=== PATIENT | female | born 1935 | race African-American/Black ===

== ENCOUNTER 2017-02-27 22:59 | Inpatient (IN) | payer BC, MEDICAID ==
[~2017-02-27] VITALS: Ht 162.6 cm; Wt 99.8 kg
[~2017-02-27 22:59] MED LIST: ASPI-1159 PO; CLON0.3T4 PO; COR12 PO; Cyclobenzaprine Hcl PO; FOLI-43 PO; GLIP5TAB12 PO; HYDR100T31 PO; LISI-652 PO; LISI40TA4 PO; LOVA40TA73 PO; NIFE30TA43 PO; PRAZ1CAP2 PO; PRAZ2CAP2 PO; VALS1TAB31 PO
[2017-02-27] MEDS ORDERED: NITROGLYCERIN OINT 1GM/INCH UDPKT TD STA (23:02)
[2017-02-27 23:22] LABS: BASOPHILS % 0.7 % (0.0-2.0); EOSINOPHILS % 2.9 % (0.0-5.0); HEMATOCRIT. 28.8 % (36.0-48.0); HEMOGLOBIN. 9.4 g/dL (12.0-16.0); LYMPHOCYTES % 35.3 % (20.0-50.0); MEAN CORPUSCULAR HEMOGLOBIN 32.1 pg (28.0-32.0); MEAN CORPUSCULAR VOLUME 98.1 fL (81.0-99.0); MEAN PLATELET VOLUME 7.3 fl (7.4-10.4); MONOCYTES % 7.8 % (2.0-8.0); NEUTROPHILS % 53.3 % (40.0-76.0); PLATELET 191 x1000/uL (130-400); RED BLOOD CELL COUNT 2.94 mill/uL (4.2-5.4); RED CELL DISTRIBUTION WIDTH 17.1 % (11.6-14.6)
[2017-02-27 23:38] LABS: TROPONIN I 0.3 ng/mL (0.00-0.04)
[2017-02-28 02:00] VITALS: BP 164/85
[2017-02-28] MEDS ORDERED: DEXTROSE 50% WATER 50ML SYRINGE IV PRN (03:00)
[2017-02-28] MEDS ORDERED: TEMAZEPAM 15MG CAPSULE PO PRN (03:00)
[2017-02-28] MEDS ORDERED: CHOL200077 PO (03:34)
[2017-02-28] MEDS ORDERED: NIFE30TA94 PO (03:34)
[2017-02-28 04:00] VITALS: BP 113/61
[2017-02-28] MEDS: BLOOD SUGAR DIAGNOSTIC STRIP TEST SCH ×4 (06:28→20:52)
[2017-02-28] MEDS: INSULIN LISPRO 100 UNITS/ML SUBCUT SCH ×4 (06:31→20:52)
[2017-02-28 08:00] VITALS: BP 147/71
[2017-02-28] MEDS: CHOLECALCIFEROL (D3) 1000 UNIT TABLET PO SCH (08:47)
[2017-02-28] MEDS: ENOXAPARIN 40MG/0.4ML SYR SUBCUT SCH (08:47)
[2017-02-28] MEDS ORDERED: MEDICATION NOT ON FORMULARY EA (Cholecalciferol (Vitamin D3) (Vitamin D3) 2,000 UNIT) PO SCH (09:00)
[2017-02-28] MEDS: CARVEDILOL 12.5MG TABLET PO SCH ×2 (09:00→21:03)
[2017-02-28] MEDS ORDERED: NIFEDIPINE XL 60MG TAB PO SCH (09:00)
[2017-02-28] MEDS ORDERED: ENOXAPARIN 30MG/0.3ML SYR SUBCUT SCH (09:00)
[2017-02-28] MEDS: NIFEDIPINE XL 60MG TAB PO SCH ×2 (09:00→21:04)
[2017-02-28] MEDS ORDERED: NIFEDIPINE PO SCH (09:00)
[2017-02-28] MEDS: FOLIC ACID/VITAMIN B COMP W-C TABLET PO SCH (10:54)
[2017-02-28] MEDS: ASPIRIN 81MG TABLET PO SCH (10:54)
[2017-02-28 12:00] VITALS: BP 186/88
[2017-02-28 16:00] VITALS: BP 173/87
[2017-02-28 20:00] VITALS: BP 142/85
[2017-02-28] MEDS ORDERED: EPOETIN ALFA 10000UNITS/ML VIAL SUBCUT SCH (21:00)
[2017-03-01] VITALS: BP 166/81
[2017-03-01 04:00] VITALS: BP 160/80
[2017-03-01 07:15] LABS: BASOPHILS % 0.5 % (0.0-2.0); EOSINOPHILS % 2.8 % (0.0-5.0); HEMATOCRIT. 29.6 % (36.0-48.0); HEMOGLOBIN. 9.7 g/dL (12.0-16.0); LYMPHOCYTES % 38.2 % (20.0-50.0); MEAN CORPUSCULAR HEMOGLOBIN 32.1 pg (28.0-32.0); MEAN CORPUSCULAR VOLUME 97.6 fL (81.0-99.0); MONOCYTES % 11.9 % (2.0-8.0); NEUTROPHILS % 46.6 % (40.0-76.0); PLATELET 161 x1000/uL (130-400); RED BLOOD CELL COUNT 3.04 mill/uL (4.2-5.4); RED CELL DISTRIBUTION WIDTH 16.8 % (11.6-14.6)
[2017-03-01 07:46] LABS: PHOSPHORUS 3.3 mg/dL (2.5-4.9)
[2017-03-01 08:00] VITALS: BP 170/79
[2017-03-01] MEDS: CHOLECALCIFEROL (D3) 1000 UNIT TABLET PO SCH (08:07)
[2017-03-01] MEDS: ASPIRIN 81MG TABLET PO SCH (08:07)
[2017-03-01] MEDS: FOLIC ACID/VITAMIN B COMP W-C TABLET PO SCH (08:07)
[2017-03-01] MEDS: ENOXAPARIN 40MG/0.4ML SYR SUBCUT SCH (08:31)
[2017-03-01] MEDS: CARVEDILOL 12.5MG TABLET PO SCH ×2 (09:00→21:45)
[2017-03-01] MEDS: NIFEDIPINE XL 60MG TAB PO SCH ×2 (09:00→21:45)
[2017-03-01 09:39] LABS: BG BASE EXCESS 2.9 mmol/L (-2.0-2.0); BG CARBOXYHEMOGLOBIN 0.7 % (0.5-1.5); BG DEOXYHEMOGLOBIN 7.1 % (0.0-5.0); BG FRACTION INSPIRED OXYGEN 21; BG HCO3 ACT 27.4 mmol/L (22.0-26.0); BG METHEMOGLOBIN 0.2 % (0.0-1.5); BG OXYGEN SATURATION 92.8 % (92.0-98.5); BG PCO2 41.9 mmHg (35.0-45.0); BG PH 7.434 (7.350-7.450); BG PO2 65.8 mmHg (75.0-100.0); BG SAMPLE SITE RIGHT RADIAL; BG TOTAL HEMOGLOBIN 11.4 g/dL (12.0-18.0); BG VENT MODE ROOM AIR
[2017-03-01] MEDS: BLOOD SUGAR DIAGNOSTIC STRIP TEST SCH ×3 (11:10→21:00)
[2017-03-01] MEDS: INSULIN LISPRO 100 UNITS/ML SUBCUT SCH ×3 (11:53→21:00)
[2017-03-01 12:00] VITALS: BP 148/76
[2017-03-01] MEDS ORDERED: LIDOCAINE HCL/PF 1% 2ML VIAL ONE (14:33)
[2017-03-01] MEDS ORDERED: IOHEXOL-350 100 ML BOTTLE ONE (15:08)
[2017-03-01] MEDS ORDERED: SODIUM CHLORIDE 0.9% 10ML VIAL ONE (15:08)
[2017-03-01] MEDS: LISINOPRIL 40MG TABLET PO SCH (15:39)
[2017-03-01 16:00] VITALS: BP 168/70
[2017-03-01 20:00] VITALS: BP 173/77
[2017-03-01] MEDS ORDERED: ACETAMINOPHEN 325MG TABLET PO PRN (21:45)
[2017-03-02] VITALS: BP 165/68
[2017-03-02 04:00] VITALS: BP 146/74
[2017-03-02] MEDS: INSULIN LISPRO 100 UNITS/ML SUBCUT SCH ×2 (06:31→11:44)
[2017-03-02] MEDS: BLOOD SUGAR DIAGNOSTIC STRIP TEST SCH ×2 (06:31→11:40)
[2017-03-02 08:00] VITALS: BP 141/64
[2017-03-02] MEDS: LISINOPRIL 40MG TABLET PO SCH (08:37)
[2017-03-02] MEDS: CARVEDILOL 12.5MG TABLET PO SCH (08:37)
[2017-03-02] MEDS: FOLIC ACID/VITAMIN B COMP W-C TABLET PO SCH (08:37)
[2017-03-02] MEDS: ASPIRIN 81MG TABLET PO SCH (08:37)
[2017-03-02] MEDS: CHOLECALCIFEROL (D3) 1000 UNIT TABLET PO SCH (08:37)
[2017-03-02] MEDS: NIFEDIPINE XL 60MG TAB PO SCH (08:37)
[2017-03-02] MEDS: ENOXAPARIN 40MG/0.4ML SYR SUBCUT SCH (08:40)
[2017-03-02 10:13] VITALS: BP 141/66
== END 2017-03-02 12:05 | disposition home or self-care (01) | DRG 189 ==
LOC: ER 23:17 → 8WST 02-28 00:06 → EDBEDREQSVC 02-28 00:14 → EDBEDREQ 02-28 00:14 → EDBEDREQTM 02-28 00:14 → ENRESERV 02-28 00:31
PROVIDERS: ADMIT Internal Medicine Pulmonary Disease; ATTEND Internal Medicine Pulmonary Disease
PROC: 5A09357 Assistance with Respiratory Ventilation, Less than 24 Consecutive Hours, Continuous Positive Airway Pressure (ICD-10-PCS; principal; 2017-02-27)
PROC: 5A1D60Z (ICD-10-PCS; 2017-02-28)
DX: J96.91 Respiratory failure, unspecified with hypoxia (principal); J81.1 Chronic pulmonary edema; N18.6 End stage renal disease; E11.22 Type 2 diabetes mellitus with diabetic chronic kidney disease; I16.1 Hypertensive emergency; I13.11 Hypertensive heart and chronic kidney disease without heart failure, with stage 5 chronic kidney disease, or end stage renal disease; I45.81 Long QT syndrome; E78.5 Hyperlipidemia, unspecified; D64.9 Anemia, unspecified; Z82.49 Family history of ischemic heart disease and other diseases of the circulatory system; Z98.41 Cataract extraction status, right eye; Z98.42 Cataract extraction status, left eye; Z79.82 Long term (current) use of aspirin; Z79.899 Other long term (current) drug therapy; Z90.710 Acquired absence of both cervix and uterus; Z99.2 Dependence on renal dialysis
CPT/HCPCS: 36415; 36600; 71010; 71275; 76700; 80048; 80076; 82375; 82805; 82962; 83735; 84100; 84484; 85025; 93005; 99291; A4216; J0885; J1650; J1815; J3490; J7030; Q9967

== ENCOUNTER 2020-10-12 09:09 | Inpatient (IN) | payer BC, MEDICAID ==
[~2020-10-12] VITALS: Ht 162.6 cm; Wt 63.5 kg
[~2020-10-12 09:09] MED LIST changes: -ASPI-1159 PO; +ASPI-1497 PO; +CHOL200077 PO; +LISI40TA13 PO; -LISI40TA4 PO; +NIFE30TA94 PO
[2020-10-12] MEDS ORDERED: SODIUM CHLORIDE 0.9% 250 ML IV ONE (09:45)
[2020-10-12 09:53] LABS: BASOPHILS % 0.7 % (0.0-2.0); EOSINOPHILS % 2.7 % (0.0-5.0); HEMATOCRIT. 33.6 % (36.0-48.0); HEMOGLOBIN. 11.5 g/dL (12.0-16.0); LYMPHOCYTES % 32.3 % (20.0-50.0); MEAN CORPUSCULAR HEMOGLOBIN 34.6 pg (28.0-32.0); MEAN CORPUSCULAR VOLUME 101.4 fL (81.0-99.0); MEAN PLATELET VOLUME 7.4 fl (7.4-10.4); MONOCYTES % 13.1 % (2.0-8.0); NEUTROPHILS % 51.2 % (40.0-76.0); PLATELET 236 x1000/uL (130-400); RED BLOOD CELL COUNT 3.31 mill/uL (4.2-5.4); RED CELL DISTRIBUTION WIDTH 15.1 % (11.6-14.6)
[2020-10-12 10:12] LABS: CHLORIDE 92 mEq/L (98-107)
[2020-10-12] MEDS ORDERED: NIFEDIPINE XL 60MG TAB PO SCH (15:00)
[2020-10-12] MEDS ORDERED: ASCO-339 MT (18:18)
[2020-10-12] MEDS ORDERED: HYDR-4135 PO (18:20)
[2020-10-12] MEDS ORDERED: LOSA100T32 PO (18:29)
[2020-10-12] MEDS ORDERED: OMEP20CA14 PO (18:29)
[2020-10-12] MEDS ORDERED: LOVA40TA73 PO (18:29)
[2020-10-12] MEDS ORDERED: NIFE-32 PO (18:29)
[2020-10-12] MEDS ORDERED: ONDANSETRON HCL 4MG/2ML INJ IV PRN (18:30)
[2020-10-12] MEDS ORDERED: HYDRALAZINE HCL 100MG TABLET PO NR (18:30)
[2020-10-12] MEDS ORDERED: *PATIENT'S OWN MEDICATION STORAGE XX SCH (18:45)
[2020-10-12] MEDS: LOSARTAN POTASSIUM 100 MG TABLET PO SCH (19:02)
[2020-10-12 20:00] VITALS: BP 160/67
[2020-10-12] MEDS ORDERED: SODIUM POLYSTYRENE SULFONATE 15 G/60 ML BOT PO NR (20:00)
[2020-10-12] MEDS: CARVEDILOL 12.5MG TABLET PO SCH ×2 (21:00→21:31)
[2020-10-12] MEDS ORDERED: DEXTROSE 50% WATER 50ML SYRINGE IV PRN (21:15)
[2020-10-12] MEDS: HYDRALAZINE HCL 100MG TABLET PO SCH (21:30)
[2020-10-12] MEDS: NIFEDIPINE XL 60MG TAB PO SCH (21:30)
[2020-10-12] MEDS: ACETAMINOPHEN 325MG TABLET PO PRN (22:47)
[2020-10-13] VITALS: BP 134/57
[2020-10-13 04:00] VITALS: BP 121/62
[2020-10-13] MEDS: HYDRALAZINE HCL 100MG TABLET PO SCH ×4 (06:00→21:16)
[2020-10-13] MEDS: ACETAMINOPHEN 325MG TABLET PO PRN ×2 (06:16→21:54)
[2020-10-13] MEDS: BLOOD SUGAR DIAGNOSTIC STRIP TEST SCH ×4 (06:59→21:51)
[2020-10-13] MEDS ORDERED: CALCIUM CARBONATE 500MG TABLET CHEW PO PRN (07:00)
[2020-10-13 07:06] LABS: BASOPHILS % 0.5 % (0.0-2.0); EOSINOPHILS % 3.5 % (0.0-5.0); HEMATOCRIT. 28.5 % (36.0-48.0); HEMOGLOBIN. 9.6 g/dL (12.0-16.0); LYMPHOCYTES % 35.2 % (20.0-50.0); MEAN CORPUSCULAR HEMOGLOBIN 34.1 pg (28.0-32.0); MEAN CORPUSCULAR VOLUME 100.8 fL (81.0-99.0); MEAN PLATELET VOLUME 7.4 fl (7.4-10.4); MONOCYTES % 11.6 % (2.0-8.0); NEUTROPHILS % 49.2 % (40.0-76.0); PLATELET 214 x1000/uL (130-400); RED BLOOD CELL COUNT 2.83 mill/uL (4.2-5.4); RED CELL DISTRIBUTION WIDTH 14.7 % (11.6-14.6)
[2020-10-13] MEDS ORDERED: INSULIN LISPRO 100 UNITS/ML SUBCUT SCH (07:50)
[2020-10-13] MEDS: INSULIN LISPRO 100 UNITS/ML SUBCUT SCH ×4 (07:50→21:00)
[2020-10-13 08:02] LABS: PHOSPHORUS 3.6 mg/dL (2.5-4.9)
[2020-10-13] MEDS: NIFEDIPINE XL 60MG TAB PO SCH ×2 (09:00→14:20)
[2020-10-13] MEDS: LOSARTAN POTASSIUM 100 MG TABLET PO SCH (09:00)
[2020-10-13] MEDS: CARVEDILOL 12.5MG TABLET PO SCH ×4 (09:00→21:55)
[2020-10-13 20:23] VITALS: BP 145/63
[2020-10-14 00:24] VITALS: BP 147/56
[2020-10-14 04:00] VITALS: BP 144/51
[2020-10-14] MEDS: BLOOD SUGAR DIAGNOSTIC STRIP TEST SCH ×2 (07:03→12:13)
[2020-10-14] MEDS: INSULIN LISPRO 100 UNITS/ML SUBCUT SCH ×2 (07:47→12:16)
[2020-10-14 08:00] VITALS: BP 138/50
[2020-10-14] MEDS: HYDRALAZINE HCL 100MG TABLET PO SCH (08:39)
[2020-10-14] MEDS: CARVEDILOL 12.5MG TABLET PO SCH (08:39)
[2020-10-14] MEDS: NIFEDIPINE XL 60MG TAB PO SCH (08:39)
[2020-10-14] MEDS: LOSARTAN POTASSIUM 100 MG TABLET PO SCH (08:39)
[2020-10-14 10:07] LABS: HEMATOCRIT. 28.6 % (36.0-48.0); HEMOGLOBIN. 9.8 g/dL (12.0-16.0); MEAN CORPUSCULAR HEMOGLOBIN 34.9 pg (28.0-32.0); MEAN CORPUSCULAR VOLUME 101.9 fL (81.0-99.0); MEAN PLATELET VOLUME 7.6 fl (7.4-10.4); PLATELET 222 x1000/uL (130-400)
[2020-10-14 10:23] LABS: PHOSPHORUS 4.1 mg/dL (2.5-4.9)
[2020-10-14] MEDS ORDERED: LIDOCAINE HCL 1% 20ML VIAL (Pyxis) INJ INFIL ONE (11:00)
[2020-10-14] MEDS ORDERED: ALPRAZOLAM 0.25 MG TABLET PO SCH (11:15)
[2020-10-14 12:00] VITALS: BP 123/65
[2020-10-14 13:18] LABS: PLATELET ESTIMATE NORMAL
[2020-10-14 16:00] VITALS: BP 129/52
[2020-10-14] MEDS ORDERED: EPOETIN ALFA-EPBX 4,000 UNIT/ML VIAL SUBCUT SCH (21:00)
== END 2020-10-14 16:36 | disposition home health service (06) | DRG 73 ==
LOC: ER 10:01 → 6EST 14:24 → EDBEDREQSVC 14:26 → EDBEDREQ 14:26 → EDBEDREQTM 14:26 → ENRESERV 15:11
PROVIDERS: ADMIT Ophthalmology; ATTEND Ophthalmology
DX: G90.8 Other disorders of autonomic nervous system (principal); N18.6 End stage renal disease; I13.2 Hypertensive heart and chronic kidney disease with heart failure and with stage 5 chronic kidney disease, or end stage renal disease; E87.1 Hypo-osmolality and hyponatremia; I16.0 Hypertensive urgency; E11.22 Type 2 diabetes mellitus with diabetic chronic kidney disease; Z20.822 Contact with and (suspected) exposure to COVID-19; F32.9 Major depressive disorder, single episode, unspecified; E87.8 Other disorders of electrolyte and fluid balance, not elsewhere classified; E87.5 Hyperkalemia; D64.9 Anemia, unspecified; I50.9 Heart failure, unspecified; Z88.8 Allergy status to other drugs, medicaments and biological substances; Z99.2 Dependence on renal dialysis; Z85.3 Personal history of malignant neoplasm of breast
CPT/HCPCS: 36415; 71045; 80048; 80053; 82962; 83036; 83605; 83735; 84100; 84484; 85025; 87426; 87804; 93005; 97116; 97162; 99285; J0885; J1815; J3490; J7030

== ENCOUNTER 2024-07-15 14:17 | Emergency (ER) | payer BC, MEDICAID ==
[~2024-07-15] VITALS: Ht 162.6 cm; Wt 70.0 kg
[~2024-07-15 14:17] MED LIST changes: +ASCO-339 MT; -GLIP5TAB12 PO; +GLIP5TAB22 PO; +HYDR50TA40 PO; +LOSA100T33 PO; +NIFE-32 PO; +NIFE-71 PO; -NIFE30TA94 PO; +OMEP20CA14 PO
[2024-07-15 14:22] VITALS: O2SAT 96
[2024-07-15] MEDS ORDERED: PREDNISONE 20MG TABLET PO ONE (15:00)
[2024-07-15] MEDS ORDERED: IPRATROPIUM/ALBUTEROL 0.5-3(2.5)MG/3ML NEB HHN ONE (15:00)
[2024-07-15 16:06] LABS: BASOPHILS % 0.6 % (0.0-2.0); DIFFERENTIAL COMMENT 0; EOSINOPHILS % 10.6 % (0.0-5.0); HEMATOCRIT. 30.7 % (36.0-48.0); HEMOGLOBIN. 10.3 g/dL (12.0-16.0); LYMPHOCYTES % 22.8 % (20.0-50.0); MEAN CORPUSCULAR HEMOGLOBIN 35.5 pg (28.0-32.0); MEAN CORPUSCULAR HGB CONC 33.4 g/dL (31.0-37.0); MEAN CORPUSCULAR VOLUME 106.4 fL (81.0-99.0); MEAN PLATELET VOLUME 7.5 fl (7.4-10.4); MONOCYTES % 14.3 % (2.0-8.0); NEUTROPHILS % 51.7 % (40.0-76.0); PLATELET 170 x1000/uL (130-400); RED BLOOD CELL COUNT 2.89 mill/uL (4.2-5.4); RED CELL DISTRIBUTION WIDTH 15.1 % (11.6-14.6); WHITE BLOOD COUNT 5.7 x1000/uL (4.5-11.0)
[2024-07-15 16:15] LABS: CHLORIDE 96 mEq/L (98-107); SODIUM 135 mEq/L (136-145)
[2024-07-15 16:16] LABS: CARBON DIOXIDE 35 mEq/L (21-32)
[2024-07-15 16:17] LABS: CALCIUM 9.9 mg/dL (8.7-10.4); INR 0.9; PROTHROMBIN TIME 10.6 sec (9.6-11.0)
[2024-07-15 16:21] LABS: CREATININE 3.4 mg/dL (0.6-1.0); GLUCOSE 156 mg/dL (70-105); UREA NITROGEN BLOOD 16 mg/dL (9-23)
[2024-07-15 16:25] LABS: TROPONIN I HIGH SENSITIVITY 324 ng/L (3.0-34)
[2024-07-15 17:30] VITALS: BP 155/77; PULSE 65; RESP 16; TEMP 36.3; O2SAT 98
== END 2024-07-15 17:35 | disposition home or self-care (01) ==
LOC: ER 14:17
DX: I21.4 Non-ST elevation (NSTEMI) myocardial infarction (principal); R55 Syncope and collapse; I11.0 Hypertensive heart disease with heart failure; I50.9 Heart failure, unspecified; E11.65 Type 2 diabetes mellitus with hyperglycemia; E78.00 Pure hypercholesterolemia, unspecified; Z79.82 Long term (current) use of aspirin; Z79.899 Other long term (current) drug therapy; Z88.5 Allergy status to narcotic agent; Z88.8 Allergy status to other drugs, medicaments and biological substances; Z99.2 Dependence on renal dialysis
CPT/HCPCS: 36415; 71045; 80048; 83880; 84484; 85025; 93005; 99285